=== PATIENT | male | born 1975 | race Caucasian/White ===

== ENCOUNTER 2018-03-16 05:08 | Emergency (ER) | payer BC ==
[~2018-03-16] VITALS: Ht 180.3 cm; Wt 120.3 kg
[2018-03-16 05:10] VITALS: Ht 180.3 cm; Wt 120.3 kg
[2018-03-16 05:49] LABS: BASOPHIL % 0.6 % (0-2); PLATELET COUNT 274 x10^3mcL (130-400); RED CELL DISTRIBUTION WIDTH 13.9 % (11.5-14.5)
[2018-03-16 08:06] LABS: CALCIUM 9.2 mg/dL (8.5-10.1); CARBON DIOXIDE 28.7 mmol/L (21-32); CHLORIDE SERUM 104 mmol/L (98-107); GFR1 > 60 mL/min; GLUCOSE SERUM 122 mg/dL (74-106); POTASSIUM SERUM 3.3 mmol/L (3.5-5.1); SODIUM SERUM 142 mmol/L (136-145)
[2018-03-16 08:10] LABS: ALBUMIN 3.6 g/dL (3.4-5.0); ALKALINE PHOSPHATASE 116 U/L (46-116); ALT/SGPT 74 U/L (16-63); AST/SGOT 39 U/L (15-37); BILIRUBIN TOTAL 0.21 mg/dL (0.20-1.00); TOTAL PROTEIN, SERUM 7.4 g/dL (6.4-8.2)
[2018-03-16 09:18] VITALS: BP 139/96
== END 2018-03-16 09:18 | disposition home or self-care (01) ==
LOC: ED 05:08
PROVIDERS: Emergency Medicine
DX: K80.70 Calculus of gallbladder and bile duct without cholecystitis without obstruction (principal); I16.0 Hypertensive urgency
CPT/HCPCS: J1885; Q0092